=== PATIENT | female | born 1950 | race Caucasian/White ===

== ENCOUNTER → 2017-09-03 | Outpatient (CLI) | payer OTHER ==
[2017-09-03 11:43] LABS: LDL CHOLESTEROL 103 mg/dl
== END ==
LOC: LAB 10:12
PROVIDERS: ATTEND Family Medicine
DX: Z00.00 Encounter for general adult medical examination without abnormal findings (principal)
CPT/HCPCS: 36415; 82040; 82247; 82310; 82374; 82435; 82465; 82565; 82947; 83718; 84075; 84132; 84155; 84295; 84443; 84450; 84460; 84478; 84520

== ENCOUNTER → 2017-09-09 | Outpatient (CLI) | payer OTHER ==
--- NOTE | 2017-09-10 08:31 | RADIOLOGY IMAGING REPORT ---
FACILITY: [facility] - [place] PATIENT NAME: DIMAS SARAVIA : [id number] MR: [id number] V: [id number] EXAM DATE: [id number] ORDERING PHYSICIAN: MELISSA LAU TECHNOLOGIST: Val Talamantes PROCEDURE:BILATERAL DIGITAL SCREENING MAMMOGRAM WITH CAD ASSISTED INTERPRETATION AND 3D BREAST TOMOSYNTHESIS. COMPARISON:Prior mammograms dated 08/27/16, 08/21/15, 07/05/14, 04/26/13, 02/02/12 and 11/11/10. INDICATIONS:SCREENING FINDINGS: Moderately dense fibroglandular tissue is seen throughout the breasts. The parenchymal pattern has remained stable when allowing for difference in mammographic technique and patient positioning. There is no evidence of malignant appearing mass, malignant appearing calcification or other secondary sign of malignancy in either breast. DIAGNOSTIC CATEGORY 1--NEGATIVE. RECOMMENDATIONS: ROUTINE MAMMOGRAM AND CLINICAL EVALUATION. IMPRESSION: Bi-RADS 1: No significant abnormality is seen. Images were reviewed with R2CAD and 3D breast tomosynthesis. Dictated by: Kandy Parsons M.D. on 09/09/2017 at 15:53 Transcribed by: AVA on 09/09/2017 at 19:43 Approved by: Kandy Parsons M.D. on 09/10/2017 at 8:30 [facility]
== END ==
LOC: MAMO 01:11
PROVIDERS: ATTEND Family Medicine
DX: Z12.31 Encounter for screening mammogram for malignant neoplasm of breast (principal)
CPT/HCPCS: 77063; 77067

== ENCOUNTER → 2018-02-10 | Outpatient (CLI) | payer MEDICARE, OTHER ==
--- NOTE | 2018-02-10 14:34 | RADIOLOGY IMAGING REPORT ---
FACILITY: [facility] - [place] PATIENT NAME: Bridget Milner : 1950 MR: [id number] V: [id number] EXAM DATE: ORDERING PHYSICIAN: MELISSA LAU TECHNOLOGIST: Location: [facility] - [place] Patient: Bridget Milner : 1950 Visit/Account:[id number] Date of Sevice: 02/10/2018 Exam type: THORACIC SPINE 2 VIEW History: Pain in back for three weeks Comparison: None. Findings: There are moderate degenerative changes at C5-6 and C6-7. There are mild multilevel spondylotic oscar ges in the thoracic spine as well. No evidence of acute fractures or subluxations. IMPRESSION: 1. Mild degenerative changes in the thoracic spine and moderate degenerative changes the visualized lower cervical spine Report Dictated By: Kandy Parsons MD at 02/10/2018 2:27 PM Report E-Signed By: Kandy Parsons MD at 02/10/2018 2:30 PM WSN:[email or web address]
== END ==
LOC: RAD 11:40
PROVIDERS: ATTEND Family Medicine
DX: M47.894 Other spondylosis, thoracic region (principal); M47.892 Other spondylosis, cervical region
CPT/HCPCS: 72070

== ENCOUNTER → 2018-04-08 | Outpatient (CLI) | payer MEDICARE, OTHER ==
[2018-04-08 09:25] LABS: LDL CHOLESTEROL 82 mg/dl
== END ==
LOC: LAB 08:03
PROVIDERS: ATTEND Family Medicine
DX: E03.9 Hypothyroidism, unspecified (principal); E78.5 Hyperlipidemia, unspecified
CPT/HCPCS: 36415; 82040; 82247; 82310; 82374; 82435; 82465; 82565; 82947; 83718; 84075; 84132; 84155; 84295; 84443; 84450; 84460; 84478; 84520

== ENCOUNTER → 2018-09-21 | Outpatient (CLI) | payer MEDICARE, OTHER ==
[2018-09-21 10:15] LABS: LDL CHOLESTEROL 94 mg/dl
--- NOTE | 2018-09-22 08:36 | RADIOLOGY IMAGING REPORT ---
FACILITY: [facility] PATIENT NAME: DIMAS SARAVIA : [id number] MR: [id number] V: [id number] EXAM DATE: ORDERING PHYSICIAN: MELISSA LAU TECHNOLOGIST: Val Talamantes PROCEDURE:BILATERAL DIGITAL SCREENING MAMMOGRAM WITH CAD ASSISTED INTERPRETATION & 3D TOMOSYNTHESIS COMPARISON:Prior mammograms 09/09/17, 08/27/16, 08/21/15, 07/05/14, 04/26/13, 02/02/12. INDICATIONS:SCREENING FINDINGS: The breasts are heterogeneously dense which can obscure small masses. The parenchymal pattern has remained stable allowing for difference in mammographic technique & patient positioning. DIAGNOSTIC CATEGORY 1--NEGATIVE. RECOMMENDATIONS: ROUTINE MAMMOGRAM AND CLINICAL EVALUATION. IMPRESSION: BIRADS 1: Negative. No significant abnormality is seen. Dictated by: Kandy Parsons M.D. on 09/21/2018 at 9:54 Transcribed by: GILBERT on 09/21/2018 at 10:00 Approved by: Kandy Parsons M.D. on 09/22/2018 at 8:35 [facility]
== END ==
LOC: MAMO 01:15
PROVIDERS: ATTEND Family Medicine
DX: Z12.31 Encounter for screening mammogram for malignant neoplasm of breast (principal); E03.9 Hypothyroidism, unspecified; E78.5 Hyperlipidemia, unspecified
CPT/HCPCS: 36415; 77063; 77067; 82040; 82247; 82310; 82374; 82435; 82465; 82565; 82947; 83718; 84075; 84132; 84155; 84295; 84443; 84450; 84460; 84478; 84520

== ENCOUNTER 2019-01-21 00:44 | Day surgery (SDC) | payer MEDICARE, OTHER ==
[~2019-01-21] VITALS: Ht 160 cm; Wt 66.2 kg
[2019-01-21] VITALS (7 sets, daily range): BP systolic 88–146; BP diastolic 54–81
[~2019-01-21 00:44] MED LIST: ATOR10TA24 PO; ESTR1POW41 MC; LEVO75TA73 PO; MULT1CAP59 PO; SERT-184 PO; SUMA100T33 PO
[2019-01-21] MEDS ORDERED: NORMOSOL R SOLN(*) 1000 ML BAG 1,000 ML IV PRN (07:30)
[2019-01-21] MEDS ORDERED: LIDOCAINE/SOD BICARB 8.4% SYR ID ONE (07:30)
[2019-01-21] MEDS ORDERED: LIDOCAINE MPF 1% 5 ML VIAL ONE (09:17)
[2019-01-21] MEDS ORDERED: PROPOFOL EMUL(*) 10MG/ML 20 ML 40 ML ONE (09:17)
--- NOTE | 2019-01-21 10:56 | Short(Outpt) Discharge Summary ---
Discharge Summary Reason for Hosp/Final Diag: (1) Fecal occult blood test positive Hospital Course & Plan: pt presented for colonoscopy. she tolerated the procedure well. she will be discharged home when criteria met. Departure Discharge to: Home Discharge Instructions Home Meds Reported Medications Multivitamin (MULTIVITAMINS) 1 Each Capsule, 1 EACH PO QAM, CAPSULE 01/14/19 Sertraline Hcl (SERTRALINE HCL) 50 Mg Tablet, 1 TAB PO QAM, TAB 01/14/19 Levothyroxine Sodium (LEVOTHYROXINE SODIUM) 75 Mcg Tablet, 75 MCG PO QAM, TAB 01/14/19 Atorvastatin Calcium (LIPITOR) 10 Mg Tablet, 1 TAB PO QAM, TAB 01/14/19 Estradiol Hemihydrt,Micronized (ESTRADIOL) 1 Gm Powder, 1 GM MC QAM 01/14/19 Sumatriptan Succinate (SUMATRIPTAN SUCCINATE) 100 Mg Tablet, 100 MG PO PRN 01/14/19 Diet: Regular Activity: As Tolerated Special Instructions: repeat colonoscopy in 10 yrs. NANDO RIVERA January 21, 2019 10:56
== END 2019-01-21 12:00 | disposition home or self-care (01) ==
LOC: OR 00:44
PROVIDERS: ATTEND Surgery
DX: K57.30 Diverticulosis of large intestine without perforation or abscess without bleeding (principal)
CPT/HCPCS: 00811; 45378; J2001; J2704